=== PATIENT | female | born 1960 | race Caucasian/White ===

== ENCOUNTER 2017-12-01 09:15 | Outpatient (CLI) | payer OTHER | END 2017-12-01 09:16 | disposition home or self-care (01) | LOC: BICMAMMO 09:15 | PROVIDERS: ATTEND Obstetrics & Gynecology | DX: Z12.31 Encounter for screening mammogram for malignant neoplasm of breast (principal) | CPT/HCPCS: 77063; 77067 ==

== ENCOUNTER 2019-01-06 09:41 | Outpatient (CLI) | payer OTHER | END 2019-01-06 09:42 | disposition home or self-care (01) | LOC: DTY/OP 09:41 | PROVIDERS: ATTEND Surgery | DX: E66.01 Morbid (severe) obesity due to excess calories (principal) | CPT/HCPCS: 97802 ==

== ENCOUNTER 2019-02-19 10:05 | Outpatient (CLI) | payer OTHER | END 2019-02-19 10:06 | disposition home or self-care (01) | LOC: DTY/OP 10:05 | PROVIDERS: ATTEND Family Medicine | DX: E66.01 Morbid (severe) obesity due to excess calories (principal) | CPT/HCPCS: 97802 ==

== ENCOUNTER 2019-03-03 10:36 | Outpatient (CLI) | payer OTHER | END 2019-03-03 10:37 | disposition home or self-care (01) | LOC: DTY/OP 10:36 | PROVIDERS: ATTEND Surgery | DX: E66.01 Morbid (severe) obesity due to excess calories (principal) | CPT/HCPCS: 97802 ==

== ENCOUNTER 2019-03-31 15:04 | Outpatient (CLI) | payer OTHER | END 2019-03-31 15:05 | disposition home or self-care (01) | LOC: DTY/OP 15:04 | PROVIDERS: ATTEND Surgery | DX: E66.01 Morbid (severe) obesity due to excess calories (principal) | CPT/HCPCS: 97802 ==

== ENCOUNTER 2020-10-20 09:52 | Outpatient (CLI) | payer BC | END 2020-10-20 09:53 | disposition home or self-care (01) | LOC: BICMAMMO 09:52 | PROVIDERS: ATTEND Obstetrics & Gynecology | DX: N63.10 Unspecified lump in the right breast, unspecified quadrant (principal) | CPT/HCPCS: 77066; G0279 ==

== ENCOUNTER 2021-04-20 18:31 | Inpatient (IN) | payer BC ==
[2021-04-20] MEDS ORDERED: Lorazepam 2 MG/ML VIAL SLOW IVP PRN (19:01)
[2021-04-20] MEDS ORDERED: Ondansetron ODT 4 MG TAB PO PRN (19:01)
[2021-04-20] MEDS ORDERED: hydrALAZINE 20 MG/ML VIAL SLOW IVP PRN (19:01)
[2021-04-20] MEDS ORDERED: Morphine 4 MG/ML VIAL SLOW IVP PRN ×2 (19:01→19:11)
[2021-04-20] MEDS ORDERED: Ondansetron PF 4 MG/2 ML Vial IVP PRN (19:01)
[2021-04-20] MEDS ORDERED: Ketorolac Tromethamine 30 MG/ML VIAL IVP PRN (19:04)
[2021-04-20] MEDS ORDERED: Acetaminophen 500 MG TAB PO PRN (19:04)
[2021-04-20] MEDS ORDERED: Ketorolac Tromethamine 30 MG/ML VIAL ONE (19:05)
[2021-04-20] MEDS ORDERED: Acetaminophen 500 MG TAB PO SCH (19:15)
[2021-04-20] MEDS ORDERED: Ketorolac Tromethamine 30 MG/ML VIAL IVP SCH (19:15)
[2021-04-20] MEDS ORDERED: Piperacillin/Tazobactam 3.375 GM in Sodium Chloride 0.9% 100 ML IVPB SCH ×2 (20:00→23:59)
[2021-04-20] MEDS ORDERED: Enoxaparin Sodium 40 MG/0.4 ML SYRINGE SC SCH (21:00)
[2021-04-20] MEDS: D5 1/2 NS w/20 mEq KCL 1,000 ML IV SCH (22:29)
[2021-04-20] MEDS: Famotidine 20 MG TAB PO SCH (22:30)
[2021-04-21] MEDS ORDERED: Piperacillin/Tazobactam 3.375 GM in Sodium Chloride 0.9% 100 ML IVPB SCH (01:00)
[2021-04-21 01:23] VITALS: BMI 28.0
[2021-04-21] MEDS: D5 1/2 NS w/20 mEq KCL 1,000 ML IV SCH (06:29)
[2021-04-21] MEDS ORDERED: Albuterol Sulfate HFA (OR ONLY) ONE (07:00)
[2021-04-21] MEDS ORDERED: Midazolam HCl 2 mg/2 ml Vial ONE (07:00)
[2021-04-21] MEDS ORDERED: Fentanyl 100 MCG/2 ML VIAL ONE (07:00)
[2021-04-21] MEDS ORDERED: Sodium Chloride 0.9% 10 ML ONE (07:00)
[2021-04-21] MEDS ORDERED: HYDROmorphone 2 MG/ML VIAL ONE (07:00)
[2021-04-21] MEDS ORDERED: Bupivacaine PF 0.5% 30 ML VIAL ONE (07:08)
[2021-04-21] MEDS ORDERED: PROPOFOL 200 MG/20 ML VIAL ONE (08:10)
[2021-04-21] MEDS ORDERED: Metoclopramide HCl 10 MG/2 ML VIAL ONE (08:10)
[2021-04-21] MEDS ORDERED: PHENYLEPHRINE-NS 100 MCG/ML 10 ML SYRINGE ONE (08:10)
[2021-04-21] MEDS ORDERED: Ketorolac Tromethamine 30 MG/ML VIAL ONE (08:10)
[2021-04-21] MEDS ORDERED: Rocuronium Bromide 10 MG/ML (10ML VIAL) ONE (08:10)
[2021-04-21] MEDS ORDERED: Dexamethasone 20 MG/5 ML VIAL ONE (08:10)
[2021-04-21] MEDS ORDERED: Lidocaine 1% PF 5 ML VIAL ONE (08:10)
[2021-04-21] MEDS ORDERED: Glycopyrrolate 0.2 MG/ML 5 ML SYRINGE ONE (08:10)
[2021-04-21] MEDS ORDERED: Ondansetron PF 4 MG/2 ML Vial ONE (08:10)
[2021-04-21] MEDS ORDERED: traMADol HCl 50 MG TAB PO PRN (08:11)
[2021-04-21] MEDS ORDERED: Ibuprofen 600 MG TAB PO PRN (08:12)
[2021-04-21] MEDS ORDERED: Ondansetron HCl/PF 4 MG/2 ML Vial IVP PRN (08:42)
[2021-04-21] MEDS ORDERED: HYDROmorphone 2 MG/ML VIAL SLOW IVP PRN (08:42)
[2021-04-21] MEDS ORDERED: Promethazine HCl 25 MG/ML VIAL IM PRN (08:42)
[2021-04-21] MEDS ORDERED: Promethazine HCl 25 MG/ML VIAL IVPB PRN (08:42)
[2021-04-21] MEDS ORDERED: Meperidine HCl/PF 25 MG/ML VIAL SLOW IVP PRN (08:42)
[2021-04-21 09:56] VITALS: BP 120/65; TEMP 97.7
[2021-04-21] MEDS: Famotidine 20 MG TAB PO SCH (10:32)
== END 2021-04-21 11:45 | disposition home or self-care (01) | DRG 343 ==
LOC: ERS 18:31 → SURG A 19:01
PROVIDERS: ADMIT Specialist; ATTEND Specialist
PROC: 0DTJ4ZZ Resection of Appendix, Percutaneous Endoscopic Approach (ICD-10-PCS; principal; 2021-04-21)
DX: K35.80 Unspecified acute appendicitis (principal); Z20.822 Contact with and (suspected) exposure to COVID-19; K44.9 Diaphragmatic hernia without obstruction or gangrene; E03.9 Hypothyroidism, unspecified; E66.9 Obesity, unspecified; Z98.84 Bariatric surgery status; Z90.49 Acquired absence of other specified parts of digestive tract; Z79.890 Hormone replacement therapy; Z68.28 Body mass index [BMI] 28.0-28.9, adult
CPT/HCPCS: 93005; 96374; A4649; C1713; J1170; J1885; J2250; J2543; J3010; J3480; J3490; S0020

== ENCOUNTER 2021-11-01 09:35 | Outpatient (CLI) | payer BC | END 2021-11-01 09:36 | disposition home or self-care (01) | LOC: BICMAMMO 09:35 | PROVIDERS: ATTEND Obstetrics & Gynecology | DX: Z12.31 Encounter for screening mammogram for malignant neoplasm of breast (principal); Z98.890 Other specified postprocedural states | CPT/HCPCS: 77063; 77067 ==